=== PATIENT | female | born 1940 | race Caucasian/White ===

== ENCOUNTER → 2017-02-11 | Outpatient (CLI) | payer MEDICARE | END | disposition home or self-care (01) | LOC: GMAJ 14:41 | PROVIDERS: ATTEND Family Medicine | DX: I10 Essential (primary) hypertension (principal) ==

== ENCOUNTER → 2017-08-27 | Outpatient (CLI) | payer MEDICARE | END | disposition home or self-care (01) | LOC: GMAJ 14:20 | PROVIDERS: ATTEND Family Medicine | DX: I10 Essential (primary) hypertension (principal) ==

== ENCOUNTER → 2018-03-27 | Outpatient (CLI) | payer MEDICARE | LOC: GMAJ 16:49 | PROVIDERS: ATTEND Family Medicine | DX: I10 Essential (primary) hypertension (principal); D50.8 Other iron deficiency anemias; E53.8 Deficiency of other specified B group vitamins ==

== ENCOUNTER → 2018-04-16 | Outpatient (CLI) | payer MEDICARE ==
--- NOTE | 2018-04-16 16:30 | US ---
EXAM DESCRIPTION: Extremity,Lower [place] Arteries CLINICAL HISTORY: 77 years Female, PVD WITH CLAUDICATION COMPARISON: None. TECHNIQUE: 2-D color flow and Doppler sonography FINDINGS: Right: Grayscale imaging demonstrates no significant atherosclerotic plaque.. Waveforms are multiphasic throughout. Peak systolic velocities (cm/sec) are as follows: AUDIO VISUAL EQUIPMENT RENTAL CLERK: 89 Proximal SFA: 112 Mid SFA: 103 Distal SFA: 87 Popliteal: 65 ADOLPH: Not measured ANIMAL SURGEON: 44 Dorsalis pedis: 71 Left: Grayscale imaging demonstrates no significant atherosclerotic plaque. Waveforms are multiphasic throughout Peak systolic velocities (cm/sec) are as follows: AUDIO VISUAL EQUIPMENT RENTAL CLERK: 73 Proximal SFA: 90 Mid SFA: 97 Distal SFA: 84 Popliteal: 70 ADOLPH: Not measured ANIMAL SURGEON: 60 Dorsalis pedis: 90 IMPRESSION: No hemodynamically significant stenosis. Electronically signed by: Chris Vargas MD 04/16/2018 4:29 PM CDT
== END ==
LOC: US 13:30
PROVIDERS: ATTEND Family Medicine
DX: I70.213 Atherosclerosis of native arteries of extremities with intermittent claudication, bilateral legs (principal)

== ENCOUNTER → 2018-05-07 | Outpatient (CLI) | payer MEDICARE | LOC: GMAJ 17:13 | PROVIDERS: ATTEND Family Medicine | DX: D50.8 Other iron deficiency anemias (principal) ==

== ENCOUNTER → 2018-06-17 | Outpatient (CLI) | payer MEDICARE | LOC: GMAJ 12:16 | PROVIDERS: ATTEND Family Medicine | DX: D51.9 Vitamin B12 deficiency anemia, unspecified (principal); I10 Essential (primary) hypertension; J45.20 Mild intermittent asthma, uncomplicated; M17.0 Bilateral primary osteoarthritis of knee ==